=== PATIENT | male | born 1975 | race Caucasian/White ===

== ENCOUNTER 2021-08-10 15:16 | Emergency (ER) | payer MEDICAID ==
[~2021-08-10] VITALS: Ht 177.8 cm; Wt 83.0 kg
[2021-08-10 15:18] VITALS: BP 141/95
[2021-08-10] MEDS ORDERED: HYDROCODONE/ACETAMINOPHEN 10/325MG TABLET PO ONE (16:00)
[2021-08-10] MEDS ORDERED: PROCHLORPERAZINE 10MG/2ML VIAL IM ONE (16:00)
== END 2021-08-10 16:18 | disposition left against medical advice (07) ==
LOC: ER 15:16
DX: Z53.21 Procedure and treatment not carried out due to patient leaving prior to being seen by health care provider (principal)
CPT/HCPCS: 99283; J0780